=== PATIENT | male | born 1965 | race Hispanic/Latino ===

== ENCOUNTER 2018-06-07 19:53 | Emergency (ER) | payer OTHER, MEDICAID ==
[2018-06-07 19:53] VITALS: BMI 40.7
[2018-06-07 19:58] VITALS: BP 145/92; PULSE 94; RESP 16; TEMP 97.9; O2SAT 100
[2018-06-07] MEDS ORDERED: Oxycodone/Acetaminophen 5/325 mg Tab PO STA (20:21)
[2018-06-07] MEDS ORDERED: Silver Sulfadiazine 1% CREAM (50 gm) TOP STA (20:22)
[2018-06-07] MEDS ORDERED: Silver Sulfadiazine 1% CREAM (50 gm) ONE (20:28)
[2018-06-07] MEDS ORDERED: Oxycodone/Acetaminophen 5/325 mg Tab ONE (20:28)
--- NOTE | 2018-06-07 20:58 | ED PDOC ---
Burn Injury/Smoke Inhalation Time Seen by Provider: 06/07/18 20:08 Chief Complaint (Nursing): Burn History Per: Patient Additional Complaint(s): Pt. states earlier at work today he accidentally spilled hot soup on his R ankle. States he was wearing shoes. Tetanus vaccine is UTD. Denies blunt trauma, numbness, tingling. Past Medical History Reviewed: Historical Data, Nursing Documentation, Vital Signs Vital Signs: Last Vital Signs Temp 97.9 F 06/07/18 19:54 Pulse 94 H 06/07/18 19:54 Resp 16 06/07/18 19:54 BP 145/92 H 06/07/18 19:54 Pulse Ox 100 06/07/18 19:54 - Medical History PMH: Anxiety, Back Problems, Diabetes, HTN, Kidney Stones, Chronic Kidney Disease Denies: Depression - Surgical History Surgical History: No Surg Hx - Family History Family History: States: No Known Family Hx - Immunization History Hx Tetanus Toxoid Vaccination: No Hx Influenza Vaccination: No Hx Pneumococcal Vaccination: No - Home Medications Home Medications: Ambulatory Orders Medication Instructions Recorded Aspirin [Aspirin Chewable] 81 mg PO DAILY #30 chew 08/30/17 Carvedilol [Coreg] 3.125 mg PO BID #60 tab 08/30/17 Lisinopril [Zestril] 5 mg PO DAILY #30 tab 08/30/17 Rosuvastatin Calcium 2.5 [Crestor] 10 mg PO HS #30 tab 08/30/17 metFORMIN [glucOPHAGE] 1,000 mg PO BID #60 tab 08/30/17 Isosorbide Mononitrate [Imdur] 30 mg PO DAILY #30 tab 09/01/17 Nitroglycerin [Nitrostat SL Tab] 0.3 mg SL Q5MIN PRN #30 tab.subl 09/01/17 Cyclobenzaprine [Flexeril] 10 mg PO BID PRN #15 tab 10/16/17 Naproxen 375 mg PO BID PRN #20 tablet 10/16/17 Acetaminophen [Tylenol 325mg tab] 650 mg PO Q4 #20 tab 01/08/18 Bacitracin Ointment [Bacitracin] 30 gm TOP Q12 #1 tube 01/08/18 SITagliptin [Januvia] 100 mg PO DAILY 01/08/18 Valsartan 320 mg PO DAILY 01/08/18 Cephalexin [cephalexin] 500 mg PO Q6 #28 cap 06/07/18 Silver Sulfadiazine 1% 50 gm 1 appl EXT BID #1 jar 06/07/18 [Silvadene 1% 50 gm] - Allergies Allergies/Adverse Reactions: Allergies Allergy/AdvReac Type Severity Reaction Status Date / Time FISH Allergy Severe SWELLING Verified 01/08/18 06:29 Iodinated Contrast- Oral and Allergy RASH Verified 06/07/18 19:54 IV Dye Review of Systems ROS Statement: Except As Marked, All Systems Reviewed And Found Negative Musculoskeletal: Positive for: Foot Pain Physical Exam - Physical Exam Appears: Positive for: Well, Non-toxic, No Acute Distress Skin: Positive for: Normal Color, Warm. Negative for: Rash Eye Exam: Positive for: Normal appearance Pulses-Dorsalis Pedis (L): 2+ Pulses-Dorsalis Pedis (R): 2+ Extremity: Positive for: Other (R achilles area with small quarter-sized non-intact vesicle with mild surrounding erythema) Neurologic/Psych: Positive for: Alert, Oriented (x3), Gait (steady, unassiste) - ECG O2 Sat by Pulse Oximetry: 100 - Progress ED Course And Treament: Silvadene cream applied then DSD applied by RN. Percocet 2 tabs PO ordered. Pt. states he prefers to take his Motrin 800mg at home for pain. Advised to f/u with Podiatry clinic or Dr. Chaudhry for further evaluation on Tuesday but is to return to ED immediately if symptoms worsen. Disposition - Clinical Impression Clinical Impression: Burn - Patient ED Disposition Is Patient to be Admitted: No - Disposition Referrals: Podiatry Clinic [Outside] Santos Chaudhry DPM [Staff Provider] - Disposition: Routine/Home Disposition Time: 20:45 Condition: STABLE Additional Instructions: FOLLOW UP WITH PODIATRY CLINIC ON TUESDAY WITHOUT FAIL RETURN TO ED IMMEDIATELY IF SYMPTOMS WORSEN FELIX GARCIA, thank you for letting us take care of you today. Your provider was Stevenson Rodriguez MD and you were treated for WC: RT FOOT BURN. The emergency medical care you received today was directed at your acute symptoms. If you were prescribed any medication, please fill it and take as directed. It may take several days for your symptoms to resolve. Return to the Emergency Department if your symptoms worsen, do not improve, or if you have any other problems. Please contact your doctor or call one of the physicians/clinics you have been referred to that are listed on the Patient Visit Information form that is included in your discharge packet. Bring any paperwork you were given at discharge with you along with any medications you are taking to your follow up visit. Our treatment cannot replace ongoing medical care by a primary care provider outside of the emergency department. Thank you for allowing the [facility] team to be part of your care today. If you had an X-Ray or CT scan: A Radiologist will review the ED reading if any change in treatment is needed we will contact you. If you had a blood, urine, or wound culture: It will take several days for the results, if any change in treatment is needed we will contact you. If you had an STI test: It will take 48 hours for the results. Please call after 1 week if you have not heard back. Prescriptions: Cephalexin [cephalexin] 500 mg PO Q6 #28 cap Silver Sulfadiazine 1% 50 gm [Silvadene 1% 50 gm] 1 appl EXT BID #1 jar Instructions: Skin Patel (DC) Forms: [employer] (Portuguese), [facility] ED School/Work Excuse Print Language: UPPER SORBIAN
== END 2018-06-07 21:02 | disposition home or self-care (01) ==
LOC: H.ER 19:53
DX: T25.221A Burn of second degree of right foot, initial encounter (principal); X10.1XXA Contact with hot food, initial encounter; Y99.0 Civilian activity done for income or pay